=== PATIENT | male | born 1960 | race Caucasian/White ===

== ENCOUNTER 2022-10-30 02:13 | Outpatient (CLI) | payer MEDICARE, SELFPAY ==
[2022-10-30 08:05] LABS: Hemoglobin A1C 8.9 % (<5.7)
[2022-10-30 08:14] LABS: COMMENT (LAB VIEW ONLY) 150.17 mg/dL; PROTEIN 154.7 mg/dL; Prot/Crea Ur Ratio 1.03
[2022-10-30 08:27] LABS: ALT 121 U/L (16-63); AST 52 U/L (15-37); Albumin 3.7 g/dL (3.4-5.0); Alkaline Phosphatase 91 U/L (46-116); Anion Gap 5.7 mmol/L (3-11); BUN 37 mg/dL (7-18); Bilirubin, Total 0.9 mg/dL (0.2-1.0); CO2 25.3 mmol/L (21.0-32.0); CREATININE 1.6 mg/dL (0.70-1.30); Calcium 8.8 mg/dL (8.5-10.1); Calculated LDL 49 mg/dL (<100); Chloride 105 mmol/L (98-107); Cholesterol 127 mg/dL (<200); Estimated GFR 49.02 (mL/min/1.73m2); Glucose 198 mg/dL (74-106); HDL Cholesterol 31 mg/dL (40-60); Sodium 136 mmol/L (136-145); TSH 1.04 uIU/mL (0.36-3.74); Total Protein 8.1 g/dL (6.4-8.2); Triglyceride 237 mg/dL (<150)
[2022-10-31 09:28] LABS: PSA, Screening 0.5 ng/mL (<=4.5)
== END 2022-10-30 02:14 | disposition home or self-care (01) ==
LOC: LBO 02:13
PROVIDERS: Visit Provider Internal Medicine
DX: E11.51 Type 2 diabetes mellitus with diabetic peripheral angiopathy without gangrene (principal); I10 Essential (primary) hypertension; E78.2 Mixed hyperlipidemia; I25.10 Atherosclerotic heart disease of native coronary artery without angina pectoris; Z12.5 Encounter for screening for malignant neoplasm of prostate
CPT/HCPCS: 36415; 80053; 80061; 84153; 82565; 83036; 84156; 84443

== ENCOUNTER 2022-11-27 00:46 | Outpatient (CLI) | payer MEDICARE, SELFPAY ==
--- NOTE | 2022-11-27 09:52 | DI.RAD_ITS ---
Exam(s) XR HIP RT COMPLETE AP PELVIS EXAM: XR HIP RT COMPLETE AP PELVIS CLINICAL HISTORY: LIMITATION OF JOINT MOTION OF HIP RIGHT M25.651 R/O SEVERE OA. TECHNIQUE: 2D digital imaging was performed of the right hip. Three images were obtained. AP pelvis and lateral right hip views were obtained. COMPARISON: No exams were available for comparison FINDINGS: BONES: No acute fracture is present. No bony destructive lesion is seen. JOINTS: No dislocation present. There are marked degenerative changes seen in the right hip with join t space narrowing and periarticular spurring. The left hip is well maintained. SOFT TISSUE: Normal. IMPRESSION: There are marked degenerative changes seen in the right hip. DATA REPOSITORY: RADIATION DOSE DELIVERED:
== END 2022-11-27 01:06 ==
LOC: DI 00:46
PROVIDERS: Visit Provider Internal Medicine
DX: M16.11 Unilateral primary osteoarthritis, right hip (principal)
CPT/HCPCS: 73502